=== PATIENT | male | born 1945 | race Caucasian/White ===

== ENCOUNTER 2017-11-19 10:14 | Emergency (ER) | payer MEDICARE ==
[~2017-11-19] VITALS: Ht 182.9 cm; Wt 96.2 kg
[~2017-11-19 10:14] MED LIST: ANAFRANIL50 MG PO; BYSTOLIC2.5 MG ORAL; COLACE100 MG ORAL; ELIQUIS2.5 MG PO; GEODON20 MG ORAL; KLONOPIN0.5 MG ORAL; LAMICTAL100 MG ORAL; LEXAPRO10 MG ORAL; LITHIUM CARBON150 MG ORAL; LITHIUM CARBON300 MG ORAL; LUNESTA2 MG ORAL; PROPRANOLOL HCL20 MG ORAL; REMERON30 MG ORAL; RISPERDAL2 MG ORAL; TRAZODONE HCL150 MG ORAL; WELLBUTRIN XL150 MG ORAL; ZYPREXA10 MG ORAL; ZYPREXA5 MG ORAL; [UNRECOGNIZED DRUG - OTHER] PO
[2017-11-19 10:46] VITALS: BP 128/80
--- NOTE | 2017-11-19 11:11 | Emergency Room Report ---
History of Present Illness General Chief Complaint: Head, Face, Neck Trauma Source: Patient Present Illness HPI Patient is a 72-year-old male who presented after increased facial pain after a fall. Patient reportedly had mechanical fall because he was not paying attention is directed he was ambulating. 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 Patient reports having some mild facial pain. The patient was noted to be taking Elliquis. He denies any loss of consciousness. He denies any neck pain. He denies any back pain. 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 Review of Systems All Other Systems: negative except mentioned in HPI Physical Exam Vital Signs Date Time Temp Pulse Resp B/P (MAP) Pulse Ox O2 Delivery O2 Flow Rate FiO2 11/19/17 10:31 98.7 54 18 128/80 97 Room Air 98.8 Sp02 EP Interpretation: reviewed, normal General Appearance: normal inspection, alert, no apparent distress, GCS 15 Head: atraumatic Eyes: normal eye exam, PERRL, EOMI, lids + conjunctiva normal, no hyphema, no racoon eyes ENT: normal ENT inspection, TMs + canals normal, oropharynx normal, no velez signs Neck: trach midline, no bony tend, full range of motion without pain Respiratory: effort normal, no retractions, clear to auscultation, chest symmetrical, palpation of chest normal, speaking in full sentences Cardiovascular: regular rate, rhythm, no JVD Cardiovascular #2: 2+ radial (R), 2+ radial (L), 2+ dorsalis pedis (R), 2+ dorsalis pedis (L) Gastrointestinal: normal inspection, non-tender, non-distended, no rebound/ guarding, normal bowel sounds Genitourinary: normal inspection Musculoskeletal: normal ROM, non-tender, back normal Skin: other - abrasion to right cheek, right side linear abrasion, no active bleedgin Lymphatic: normal inspection Neurologic: normal inspection, CN II-XII intact, oriented x3, sensory intact, motor strength/tone normal, normal speech Psychiatric: normal inspection, memory normal, mood normal, no suicidal/ homicidal ideation Medical Decision Making Diagnostic Impression: Primary Impression: Contusion of face Additional Impressions: Anticoagulated Head injury Abrasion ER Course This presented after a fall. Differential diagnosis included was not limited to neck fracture, CVA, close head injury, syncopal episode, basilar ischemia. The patient denied loss of consciousness. Patient does not show any evidence of cervical spine fracture and has normal range of motion. The patient is awake and alert. Because of patient's anticoagulation use CT the head was ordered.CT head read by radiology showed atrophic changes without evident intracranial hemorrhage or fracture. Patient was given tetanus vaccine.The patient is advised to follow up with primary care doctor in 1-2 days. Patient is advised to return if any worsening condition or if any changes in status that are concerning. This report is dictated with [employer] tattooer software which may occasionally lead to discrepancies related to use of this software. Last Vital Signs Date Time Temp Pulse Resp B/P (MAP) Pulse Ox O2 Delivery O2 Flow Rate FiO2 11/19/17 10:46 98.8 72 18 128/80 97 Room Air 98.8 Status: improved Disposition: HOME, SELF-CARE Condition: Stable Daniel Santoro MD Nov 19, 2017 11:11
--- NOTE | 2017-11-19 11:32 | Diagnostic Imaging Report ---
Indications: Head trauma, right eye abrasion, status post fall Technique: Spiral acquisitions obtained through the brain. Angled axial and coronal 5 x 5 mm slices were reconstructed. Total dose length product 1382.88 mGycm. CTDI vol(s) 70.38 mGy. Dose reduction achieved using automated exposure control Comparison: None. Findings: No acute intrarenal hemorrhage or edema. No mass effect nor midline shift. There is mild age-related enlargement of the ventricles and extra axial CSF spaces. Normal ernst-white differentiation. The calvaria is intact. There is a prosthesis in the left orbit. The sinuses are clear Impression: Age-related volume loss Negative for acute intracranial bleed or mass effect The CT scanner at [facility] is accredited by the [employer] and the scans are performed using protocols designed to limit radiation exposure to as low as reasonably achievable to attain images of sufficient resolution adequate for diagnostic evaluation.
[2017-11-19] MEDS ORDERED: Tetanus/Diptheria/Pertussis Vaccine 0.5ml Syr IM ONE ×2 (12:06→12:15)
[2017-11-19 12:13] VITALS: BP 126/87
== END 2017-11-19 12:13 | disposition home or self-care (01) ==
LOC: EMR 11:05
DX: S00.83XA Contusion of other part of head, initial encounter (principal); W18.39XA Other fall on same level, initial encounter; Y93.89 Activity, other specified; Y92.89 Other specified places as the place of occurrence of the external cause; Z97.0 Presence of artificial eye; F32.9 Major depressive disorder, single episode, unspecified; F41.9 Anxiety disorder, unspecified; Z23 Encounter for immunization
CPT/HCPCS: 70450; 90471; 90715; 99284